=== PATIENT | male | born 1995 | race Caucasian/White ===

== ENCOUNTER 2019-02-24 17:31 | Emergency (ER) | payer OTHER ==
[~2019-02-24] VITALS: Ht 182.9 cm; Wt 63.5 kg
[2019-02-24 17:46] VITALS: BP 119/65
[2019-02-24] MEDS ORDERED: cefTRIAXone SOD 1,000 MG VL IM ONE (19:00)
[2019-02-24] MEDS ORDERED: LIDOCAINE 1% HCL (LOCAL ANESTH.) INJ 20ML MDV ID ONE (19:00)
== END 2019-02-24 19:34 | disposition home or self-care (01) ==
LOC: ER 17:35
DX: S61.412A Laceration without foreign body of left hand, initial encounter (principal); W26.9XXA Contact with unspecified sharp object(s), initial encounter; Y93.89 Activity, other specified; Y99.8 Other external cause status; Y92.89 Other specified places as the place of occurrence of the external cause
CPT/HCPCS: 12004; 96372; 99283; J0696; J2001